=== PATIENT | female | born 1945 | race African-American/Black ===

== ENCOUNTER 2016-08-26 21:55 | Emergency (ER) | payer BC | END 2016-08-27 01:00 | disposition home or self-care (01) | LOC: ER 21:55 | DX: M25.551 Pain in right hip (principal); I10 Essential (primary) hypertension; Z90.710 Acquired absence of both cervix and uterus; Z91.013 Allergy to seafood | CPT/HCPCS: 73502-RT; 73560-RT; 99284; A9270-GY ==